=== PATIENT | male | born 1935 | race Caucasian/White ===

== ENCOUNTER 2017-04-08 11:07 | Inpatient (IN) | payer MEDICARE, OTHER ==
[~2017-04-08] VITALS: Ht 172.7 cm; Wt 67.7 kg
[~2017-04-08 11:07] MED LIST: AMOX1TAB61 PO; HYDR-971 PO
--- NOTE | 2017-04-08 11:17 | PHYS DOC ---
Adult General Chief Complaint Chief Complaint: HIP PAIN HPI HPI Patient is a 81 year old male who presents with pain after he fell at [employer]. He states he just slipped on the floor and fell. He complains of left posterior hip pain, he denies any neck pain and back pain or hitting his head. He denies any fevers chills or lightheadedness. Review of Systems Review of Systems Constitutional: Denies fever or chills [] Eyes: Denies change in visual acuity, redness, or eye pain [] HENT: Denies nasal congestion or sore throat [] Respiratory: Denies cough or shortness of breath [] Cardiovascular: No additional information not addressed in HPI [] GI: Denies abdominal pain, nausea, vomiting, bloody stools or diarrhea [] : Denies dysuria or hematuria [] Musculoskeletal: Denies back pain, positive for left hip pain or joint pain [] Integument: Denies rash or skin lesions [] Neurologic: Denies headache, focal weakness or sensory changes [] Endocrine: Denies polyuria or polydipsia [] Current Medications Current Medications Current Medications Medications (Trade) Dose Ordered Sig/David Start Time Stop Time Status Last Admin Dose Admin Morphine Sulfate 2 mg PRN Q15MIN PRN 04/08/17 12:15 04/09/17 12:14 04/08/17 13:05 2 MG Ondansetron HCl (Zofran) 4 mg 1X ONCE 04/08/17 12:15 04/08/17 12:18 DC Allergies Allergies Allergies Coded Allergies Type Severity Reaction Last Updated Verified No Known Drug Allergies 12/11/15 No Physical Exam Physical Exam Constitutional: Well developed, well nourished, no acute distress, non-toxic appearance. [] HENT: Normocephalic, atraumatic, bilateral external ears normal, oropharynx moist, no oral exudates, nose normal. [] Eyes: PERRLA, EOMI, conjunctiva normal, no discharge. [] Neck: Normal range of motion, no tenderness, supple, no stridor. [] Cardiovascular:Heart rate regular rhythm, no murmur [] Lungs & Thorax: Bilateral breath sounds clear to auscultation [] Abdomen: Bowel sounds normal, soft, no tenderness, no masses, no pulsatile masses. [] Skin: Warm, dry, no erythema, no rash. [] Back: No tenderness, no CVA tenderness. [] Extremities: Palpation of the left hip, no obvious deformity noted, dorsal pedis pulse 2+ in the left, no pain on the right hip or pelvis, no cyanosis, no clubbing, ROM intact, no edema. [] Neurologic: Alert and oriented X 3, normal motor function, normal sensory function, no focal deficits noted. [] Psychologic: Affect normal, judgement normal, mood normal. [] Current Patient Data Vital Signs Vital Signs Date Time Temp Pulse Resp B/P (MAP) Pulse Ox O2 Delivery O2 Flow Rate FiO2 04/08/17 11:27 97.8 56 18 170/79 (109) 98 Room Air 97.8 EKG EKG G shows sinus bradycardia with left axis deviation rate of 49 beats were without any ST elevations or T-wave inversions, QTC 409 ms, as interpreted by me. Radiology/Procedures Radiology/Procedures [facility] [address] [place], [place] [id number] IMAGING REPORT Signed PATIENT: MARCELL BOWMAN ACCOUNT: [id number] : 1935 LOCATION: ER AGE: 81 SEX: M EXAM STATUS: REG ER ORD. PHYSICIAN: CORBIN GLASER MD REASON: left hip pain after fall PROCEDURE: HIP LEFT 2V WITH PELVIS Indication: Fall with left hip pain. Time of exam 11:58 AM There is an acute fracture through the neck of the left proximal femur. No displacement or angulation is seen. Femoral acetabular alignment is maintained. Impression: Left femoral neck fracture. DICTATED and SIGNED BY: EDNA DYER MD DATE: 04/08/17 1214 CC: TOYIN THOMPSON MD; CORBIN GLASER MD ~ Impressions: Left hip fracture Course & Med Decision Making Course & Med Decision Making Pertinent Labs and Imaging studies reviewed. (See chart for details) Patient be admitted for left femoral neck fracture. He is in stable condition this time. I added on additional labs and chest x-ray and placed orthopedic consultation. Dragon Disclaimer Dragon Disclaimer This electronic medical record was generated, in whole or in part, using a voice recognition dictation system. Departure Departure Impression: Primary Impression: Hip fracture, left Disposition: 09 ADMITTED INPATIENT Admitting Physician: Toyin Thompson Condition: STABLE Referrals: TOYIN THOMPSON MD (PCP) Problem Qualifiers Primary Impression: Hip fracture, left Encounter type: initial encounter Fracture type: closed Qualified Codes: S72.002A - Fracture of unspecified part of neck of left femur, initial encounter for closed fracture CORBIN GLASER MD Apr 08, 2017 11:17
[2017-04-08] MEDS ORDERED: MORPHINE SULFATE 2 MG/ML DISP.SYRIN. IV/SQ PRN (12:15)
[2017-04-08] MEDS ORDERED: ONDANSETRON PF 4 MG/2 ML VIAL. IV ONE (12:15)
--- NOTE | 2017-04-08 12:17 | RAD ---
Indication: Fall with left hip pain. Time of exam 11:58 AM There is an acute fracture through the neck of the left proximal femur. No displacement or angulation is seen. Femoral acetabular alignment is maintained. Impression: Left femoral neck fracture.
--- NOTE | 2017-04-08 12:22 | RAD ---
Indication: Preop and left hip fracture. Time of exam 12 00 p.m. Correlation is made with prior study from 12/18/2015. FINDINGS: The heart size is normal. The lungs are clear. No pleural effusion or pneumothorax is identified. The pulmonary vascularity is normal. IMPRESSION: No acute abnormality detected.
[2017-04-08 13:02] LABS: BASO % 0 % (0-3); EOS % 0 % (0-3); HEMATOCRIT 45.4 % (39.0-53.0); HEMOGLOBIN 14.5 g/dL (13.0-17.5); LYMPH # 1.1 x10^3/uL (1.0-4.8); LYMPH % 8 % (24-48); MEAN CORPUSCULAR HEMOGLOBIN 29 pg (25-35); MEAN CORPUSCULAR HGB CONC 32 g/dL (31-37); MEAN CORPUSCULAR VOLUME 90 fL (79-100); MONO % 6 % (0-9); NEUT % 85 % (31-73); PLATELET COUNT 198 x10^3/uL (140-400); RED BLOOD COUNT 5.04 x10^6/uL (4.30-5.70); RED CELL DISTRIBUTION WIDTH 13.5 % (11.5-14.5); WHITE BLOOD COUNT 13.5 x10^3/uL (4.0-11.0)
[2017-04-08 13:14] LABS: CALCIUM 9.2 mg/dL (8.5-10.1); CREATININE 0.9 mg/dL (0.7-1.3); POTASSIUM 4.7 mmol/L (3.5-5.1)
[2017-04-08] MEDS ORDERED: ONDANSETRON PF 4 MG/2 ML VIAL. IV PRN (13:15)
[2017-04-08] MEDS ORDERED: MORPHINE SULFATE 2 MG/ML DISP.SYRIN. IV PRN (13:15)
--- NOTE | 2017-04-08 13:18 | ACF ---
Admission Forms Criteria MUSCULOSKELETAL DISEASE GRG Clinical Indications for Admission to Inpatient Care (Place 'X' for any and all applicable criteria): Hospital admission is needed for appropriate care of the patient because of 1 or more of the following: [X ]I. Fracture, dislocation, or other musculoskeletal injury requiring inpatient care(medical) as indicated by 1 or more of the following(4)(5)(6)(7) [ ]a) Vertebral fracture requiring observation for instability or neurologic compromise (8) [ ]b) Compartment syndrome (proven or cannot be ruled out during observation level of care) (9) [ ]c) Limb-threatening injury [ ]d) Major injury requiring inpatient stabilization such as traction initiation or external fixation before internal fixation or closure of complex or open fracture [X ]e) Major injury requiring inpatient treatment after emergency or observation level care (as appropriate) [ ]f) Severe pain requiring acute inpatient management [ ]g) Injury with suspicion of abuse or neglect (eg., child, dependent elderly) [ ]II. Newly diagnosed or suspected bone, joint, or orthopedic device infection (e.g., osteomyelitis, septic arthritis) needing 1 or more of the following(1)(2)(3) [ ]a) IV antibiotics that cannot be initiated in other than inpatient setting (e.g., patient too unstable or home infusion not available) [ ]b) Device removal or replacement [ ]c) Bone or soft tissue debridement [ ]d) Joint drainage (drain placement or repetitive aspirations) [ ]III. Severe rheumatologic disease (e.g., systemic lupus erythematosus, rheumatoid arthritis) with complications or comorbidities (Also use Optimal Recovery Care Criteria or General Recovery Criteria as appropriate on the basis of predominant condition), including 1 or more of the following( 10)(11)(12)(13) [ ]a) Severe infection (e.g., ACCOUNTING ADMINISTRATIVE ASSISTANT infection, sepsis) (14) [ ]b) Respiratory complications, including 1 or more of the following : [ ]i) Pleural effusion with respiratory compromise [ ]ii) Pulmonary hypertension with congestive failure [ ]iii) Respiratory failure [ ]iv) Pulmonary hemorrhage (15) [ ]c) Hematologic disease, including 1 or more of the following: [ ]i) Coagulopathy with bleeding [ ]ii) Thrombosis with hypercoagulable state [ ]iii) Thrombotic thrombocytopenic purpura [ ]d) Cerebritis with seizures, psychosis, or other severe abnormalities [ ]e) Vertebral destruction with monitoring needed for cervical myelopathy& possible respiratory compromise [ ]f) Exacerbation that requires inpatient treatment (e.g., intravenous immunosuppression) (16) [ ]g) Acute renal failure [ ]h) Cerebritis with seizures, psychosis, Altered mental status, or other neurologic abnormalities [ ]i) Pericardial effusion with tamponade [ ]j) Vertebral destruction, with monitoring needed for cervical myelopathy and possible respiratory compromise [ ]IV. Severe vasculitis with complications or comorbidities (Also use Optimal Recovery Care Criteria General Recovery Criteria as appropriate on the basis of predominant condition), including 1 or more of the following(11)(12)(17)(18)(19)(20) [ ]a) Exacerbation that requires inpatient treatment (e.g., intravenous immunosuppression) (19)(21) [ ]b) Pulmonary hemorrhage (15) [ ]c) ACCOUNTING ADMINISTRATIVE ASSISTANT vasculitis with seizures, psychosis, Altered mental status that is severe or persistent, or other severe abnormalities (22) [ ]d) Cerebral infarction [ ]e) Gastrointestinal ischemia [ ]f) Gangrene or threatened amputation [ ]g) Renal failure (16) [ ]h) Other significant complications of vasculitis ( eg., tissue or organ ischemia, organ dysfunction ) [ ]V. Severe myopathy as indicated by 1 or more of the following (28)(29) [ ]a) New onset of airway compromise or inability to swallow [ ]b) Respiratory deterioration with observation needed for impending respiratory failure [ ]c) Exacerbation that requires inpatient treatment (e.g., intravenous immunosuppression) [ ]. Severe crystal gout (arthropathy) indicated by 1 or more of the following (23)(24) [ ]a) Severe pain requiring acute inpatient management [ ]b) Exacerbation that requires inpatient treatment (e.g., intravenous treatment) [ ]VII.Rhabdomyolysis and 1 or more of the following (25)(26)(27) [ ]a) Acute renal failure [ ]b) Need for intravenous hydration after emergency or observation level care (as appropriate) [ ]c) Inability to maintain oral hydration [ ]d) Change in mental status [ ]e) Electrolyte abnormality that remains after emergency or observation level care (as appropriate) [ ]VIII Post amputation complication, as indicated by ANY ONE of the following [ ]a) Infection [ ]b) Dehiscence [ ]c) Myodesis failure [ ]IX. Severe pain requiring acute inpatient management due to musculoskeletal condition [ ]X. Musculoskeletal Disease and ALL of the following: [ ]a) Symptom or finding for which emergency and observation care have failed or are not considered appropriate (Use General Criteria: Observation Care as appropriate) [ ]b) Presence of ANY ONE of the following [ ]i) A General Admission Criteria [ ]ii) A Pediatric General Admission Criteria The original [facility] [employer] content created by [facility] has been revised. The portions of the content which have been revised are identified through the use of italic text or in bold, and [facility] has neither reviewed nor approved the modified material. All other unmodified content is copyright [facility]. Please see references footnoted in the original [facility] edition 2016 Admission Criteria Met?: Yes DUONG HONEYCUTT Apr 08, 2017 13:18
--- NOTE | 2017-04-08 13:41 | EKG ---
[facility] [address] [place] [address] Test Date: 2017-04-08 Test Time: 13:03:19 Pat Name: MARCELL BOWMAN Department: Room: 402 Gender: M Client Leader: : 1935 Requested By: CORBIN GLASER Order Number: [id number] Reading MD: Any Bryant Measurements Intervals [place] Rate: 49 P: -41 [place]: 188 QRS: -10 QRSD: 94 T: 21 QT: 450 QTc: 409 Interpretive Statements SINUS BRADYCARDIA LEFTWARD AXIS POSSIBLY ABNORMAL ECG Electronically Signed On 04-10-2017 14:07:51 CDT by Any Bryant
[2017-04-08 13:45] VITALS: BP 153/68
--- NOTE | 2017-04-08 14:12 | RAD ---
Indication: Left hip fracture. Time of exam 1404 hours. Frontal and lateral views of the mid and distal femur were obtained. The proximal femur was not included on this study. The mid and distal femur appear intact. There are patellofemoral degenerative changes. No fractures are seen. Impression: No acute abnormality is detected.
[2017-04-08 14:22] LABS: % EOS 1 % (0-5); PLT ESTIMATE ADEQUATE (ADEQUATE)
--- NOTE | 2017-04-08 14:25 | PDOC2 ---
CONSULT Date of Consult Date of Consult DATE: 04/08/17 TIME: 14:18 Reason for Consult Reason for Consult: left hip pain Identification/Chief Complaint Chief Complaint left hip pain Problems: Source Source: Chart review, Patient History of Present Illness Reason for Visit: The patient is a 81 year old male who is in relatively good health for his age who slipped and fell earlier today while getting coffee at [employer]. He had left hip pain, but was able to get himself up and drive himself to the ER. On presentation he has a displaced left transcervical femoral neck fracture. He reports no PMH besides an occasional aspirin he takes and an abdominal surgery in the last year. His pain is moderately well controlled. He did not hit his head. No loc. No numbness, tingling. Past Medical History Cardiovascular: Hyperlipidemia Musculoskeletal: Osteoarthritis Renal/: Benign prostatic enlarg. Past Surgical History Past Surgical History: Other (abdominal surgery by DR Biggs this past year) Family History Family History unknown, pt adopted Social History No ALCOHOL: none Drugs: None Lives: with Family Current Problem List Problem List left femoral neck fracture Current Medications Current Medications Current Medications Morphine Sulfate 2 mg PRN Q15MIN PRN IV/SQ PAIN GREATER THAN 3/10 Last administered on 04/08/17t 13:05; Start 04/08/17 at 12:15; Stop 04/08/17 at 13:07 ; Status DC Ondansetron HCl (Zofran) 4 mg 1X ONCE IV ; Start 04/08/17 at 12:15; Stop at 12:18; Status DC Ondansetron HCl (Zofran) 4 mg PRN Q8HRS PRN IV NAUSEA/VOMITING; Start 04/08/17 at 13:15; Stop 04/09/17 at 13:14 Morphine Sulfate 2 mg PRN Q2HR PRN IV PAIN Last administered on 04/08/17t 13:41 ; Start 04/08/17 at 13:15; Stop 04/09/17 at 13:14 Active Scripts Active Reported [place] 5-325 Tablet (Acetaminophen/Hydrocodone Bitart) 1 Each Tablet 1 Tab PO Q4HRS PRN Take 1 tablet every 4 hours as needed for pain. Augmentin 875-125 Tablet (Amoxicillin/Potassium Clav) 1 Each Tablet 1 Tab PO BID 5 Days Take 2 times a day 1 in AM with breakfast and 1 at bedtime for the next 5 days until gone. Next dose is due tonight December 18 at bedtime Allergies Allergies: Coded Allergies: No Known Drug Allergies (Unverified , 12/11/15) ROS General: No: Chills, Night Sweats, Fatigue, Malaise, Appetite, Other Musculoskeletal: Yes Gait Disturbance, Yes Joint Pain, Yes Joint Stiffness, Yes Muscle Pain Physical Exam General: Alert, Oriented X3, Cooperative, No acute distress MUSCULOSKELETAL: Other (pain with log roll and hip rom on the left. overall he is wearing dirty clothes and has poor dentition. very pleasant and cooperative. nvi distally. leg lengths nearly equal. 2+ DP distally. ) Vitals VITALS Vital Signs Date Time Temp Pulse Resp B/P (MAP) Pulse Ox O2 Delivery O2 Flow Rate FiO2 04/08/17 13:41 16 Room Air 04/08/17 13:06 58 173/77 (109) 99 04/08/17 11:27 97.8 97.8 Labs Labs Laboratory Tests Test 04/08/17 12:50 White Blood Count 13.5 x10^3/uL (4.0-11.0) Red Blood Count 5.04 x10^6/uL (4.30-5.70) Hemoglobin 14.5 g/dL (13.0-17.5) Hematocrit 45.4 % (39.0-53.0) Mean Corpuscular Volume 90 fL (79-100) Mean Corpuscular Hemoglobin 29 pg (25-35) Mean Corpuscular Hemoglobin Concent 32 g/dL (31-37) Red Cell Distribution Width 13.5 % (11.5-14.5) Platelet Count 198 x10^3/uL (140-400) Neutrophils (%) (Auto) 85 % (31-73) Lymphocytes (%) (Auto) 8 % (24-48) Monocytes (%) (Auto) 6 % (0-9) Eosinophils (%) (Auto) 0 % (0-3) Basophils (%) (Auto) 0 % (0-3) Neutrophils # (Auto) 11.5 x10^3uL (1.8-7.7) Lymphocytes # (Auto) 1.1 x10^3/uL (1.0-4.8) Monocytes # (Auto) 0.9 x10^3/uL (0.0-1.1) Eosinophils # (Auto) 0.0 x10^3/uL (0.0-0.7) Basophils # (Auto) 0.0 x10^3/uL (0.0-0.2) Sodium Level 137 mmol/L (136-145) Potassium Level 4.7 mmol/L (3.5-5.1) Chloride Level 100 mmol/L (98-107) Carbon Dioxide Level 26 mmol/L (21-32) Anion Gap 11 (6-14) Blood Urea Nitrogen 17 mg/dL (8-26) Creatinine 0.9 mg/dL (0.7-1.3) Estimated GFR (Cockcroft-Gault) 81.0 Glucose Level 102 mg/dL (70-99) Calcium Level 9.2 mg/dL (8.5-10.1) Laboratory Tests Test 04/08/17 12:50 White Blood Count 13.5 x10^3/uL (4.0-11.0) Red Blood Count 5.04 x10^6/uL (4.30-5.70) Hemoglobin 14.5 g/dL (13.0-17.5) Hematocrit 45.4 % (39.0-53.0) Mean Corpuscular Volume 90 fL (79-100) Mean Corpuscular Hemoglobin 29 pg (25-35) Mean Corpuscular Hemoglobin Concent 32 g/dL (31-37) Red Cell Distribution Width 13.5 % (11.5-14.5) Platelet Count 198 x10^3/uL (140-400) Neutrophils (%) (Auto) 85 % (31-73) Lymphocytes (%) (Auto) 8 % (24-48) Monocytes (%) (Auto) 6 % (0-9) Eosinophils (%) (Auto) 0 % (0-3) Basophils (%) (Auto) 0 % (0-3) Neutrophils # (Auto) 11.5 x10^3uL (1.8-7.7) Lymphocytes # (Auto) 1.1 x10^3/uL (1.0-4.8) Monocytes # (Auto) 0.9 x10^3/uL (0.0-1.1) Eosinophils # (Auto) 0.0 x10^3/uL (0.0-0.7) Basophils # (Auto) 0.0 x10^3/uL (0.0-0.2) Sodium Level 137 mmol/L (136-145) Potassium Level 4.7 mmol/L (3.5-5.1) Chloride Level 100 mmol/L (98-107) Carbon Dioxide Level 26 mmol/L (21-32) Anion Gap 11 (6-14) Blood Urea Nitrogen 17 mg/dL (8-26) Creatinine 0.9 mg/dL (0.7-1.3) Estimated GFR (Cockcroft-Gault) 81.0 Glucose Level 102 mg/dL (70-99) Calcium Level 9.2 mg/dL (8.5-10.1) Images Images Xrays of the pelvis and left hip/ femur reveal a displaced transcervical femoral neck fracture. martín rawls femur Assessment/Plan Assessment/Plan The patient is an 81 year old male who slipped and fell today sustaining a left displaced femoral neck fracture The plan is for bipolar hip arthroplasty. We will await clearance from medicine, would like to operate tomorrow afternoon pt is npo after 8 am tomorrow morning pain control dvt ppx ice on the hip bedrest for now, will be wbat after surgery. After discussing the risks and benefits of surgery, the patient elected to proceed with bi-polar hip arthroplasty. JOSE GARCIA MD Apr 08, 2017 14:25
[2017-04-08 15:00] VITALS: BP 125/66
[2017-04-08 15:20] LABS: INR 1.1 (0.8-1.1); PROTHROMBIN TIME PATIENT 13.1 SEC (11.7-14.0)
[2017-04-08] MEDS: HYDROmorphone 2 MG/ML VIAL IVP PRN ×2 (16:22→22:31)
[2017-04-08] MEDS: ACETAMINOPHEN 500 MG TABLET PO SCH ×2 (18:03→23:31)
[2017-04-08 19:53] VITALS: BP 123/61
[2017-04-08 23:06] VITALS: BP 123/59
[2017-04-09] VITALS (11 sets, daily range): BP systolic 102–134; BP diastolic 56–71
[2017-04-09] MEDS: ACETAMINOPHEN 500 MG TABLET PO SCH ×4 (06:09→23:39)
[2017-04-09 06:42] LABS: BASO # 0.1 x10^3/uL (0.0-0.2); BASO % 1 % (0-3); EOS % 4 % (0-3); HEMATOCRIT 36.4 % (39.0-53.0); HEMOGLOBIN 11.8 g/dL (13.0-17.5); LYMPH # 1.2 x10^3/uL (1.0-4.8); LYMPH % 16 % (24-48); MEAN CORPUSCULAR HEMOGLOBIN 29 pg (25-35); MEAN CORPUSCULAR HGB CONC 33 g/dL (31-37); MEAN CORPUSCULAR VOLUME 90 fL (79-100); MONO % 9 % (0-9); NEUT % 71 % (31-73); PLATELET COUNT 181 x10^3/uL (140-400); RED BLOOD COUNT 4.06 x10^6/uL (4.30-5.70); WHITE BLOOD COUNT 7.5 x10^3/uL (4.0-11.0)
[2017-04-09] MEDS ORDERED: fentaNYL PF VIAL 100 MCG/2 ML VIAL IV PRN ×2 (07:00)
[2017-04-09] MEDS ORDERED: ONDANSETRON PF 4 MG/2 ML VIAL. IV PRN (07:00)
[2017-04-09] MEDS ORDERED: IV RINGERS,LACTATED 1000ML 1,000 ML IV SCH (07:00)
[2017-04-09] MEDS ORDERED: PROCHLORPERAZINE 10 MG/2 ML VIAL. IV PRN (07:00)
[2017-04-09] MEDS ORDERED: HYDROmorphone 2 MG/ML VIAL IV PRN (07:00)
[2017-04-09] MEDS ORDERED: MORPHINE SULFATE 2 MG/ML DISP.SYRIN. IV PRN (07:00)
[2017-04-09] MEDS ORDERED: LIDOCAINE 1% 1 ML SYRINGE. ID PRN (07:00)
[2017-04-09 07:16] LABS: CALCIUM 8.4 mg/dL (8.5-10.1); GFR 71.7; POTASSIUM 4.1 mmol/L (3.5-5.1)
--- NOTE | 2017-04-09 08:34 | PDOC ---
GENERAL General: vss and afebrile. awake and alert. left femoral neck fracture from fall yesterday. chest clear, heart regular, and abdomen benign. leg length about equal. nv legs intact. labs all decent. medically cleared for surgery today. can 't dictate H&P due to system being down. Problems: VITAL SIGNS Vital Signs: Vital Signs Date Time Temp Pulse Resp B/P (MAP) Pulse Ox O2 Delivery O2 Flow Rate FiO2 04/09/17 07:00 97.9 53 20 120/63 (82) 96 Room Air 97.9 I & O I & O Intake and Output 04/09/17 07:00 Intake Total 350 ml Output Total 325 ml Balance 25 ml Intake Oral 350 ml Output Urine Total 325 ml # Voids 1 ALLERGIES Allergies: Allergies Coded Allergies Type Severity Reaction Last Updated Verified No Known Drug Allergies 12/11/15 No MEDS Medications: Current Medications Medications (Trade) Dose Ordered Sig/David Start Time Stop Time Status Last Admin Dose Admin Acetaminophen (Tylenol) 1,000 mg Q6HRS 04/08/17 18:00 04/09/17 06:09 1,000 MG Fentanyl Citrate (Fentanyl 2ml Vial) 50 mcg PRN Q5MIN PRN 04/09/17 07:00 04/09/17 23:00 Hydromorphone HCl (Dilaudid) 0.5 mg PRN Q10MIN PRN 04/09/17 07:00 04/09/17 23:00 Lidocaine HCl 2 ml PRN 1X PRN 04/09/17 07:00 04/09/17 23:00 Morphine Sulfate 1 mg PRN Q10MIN PRN 04/09/17 07:00 04/09/17 23:00 Ondansetron HCl (Zofran) 4 mg PRN Q6HRS PRN 04/09/17 07:00 04/09/17 23:00 Prochlorperazine Edisylate (Compazine) 5 mg PACU PRN PRN 04/09/17 07:00 04/09/17 23:00 Ringer's Solution 1,000 ml @ 30 mls/hr Q24H 04/09/17 07:00 04/09/17 18:59 LAB Lab: Laboratory Tests Test 04/08/17 12:50 04/08/17 15:00 04/09/17 04:38 White Blood Count 13.5 x10^3/uL (4.0-11.0) 7.5 x10^3/uL (4.0-11.0) Red Blood Count 5.04 x10^6/uL (4.30-5.70) 4.06 x10^6/uL (4.30-5.70) Hemoglobin 14.5 g/dL (13.0-17.5) 11.8 g/dL (13.0-17.5) Hematocrit 45.4 % (39.0-53.0) 36.4 % (39.0-53.0) Mean Corpuscular Volume 90 fL (79-100) 90 fL (79-100) Mean Corpuscular Hemoglobin 29 pg (25-35) 29 pg (25-35) Mean Corpuscular Hemoglobin Concent 32 g/dL (31-37) 33 g/dL (31-37) Red Cell Distribution Width 13.5 % (11.5-14.5) 13.0 % (11.5-14.5) Platelet Count 198 x10^3/uL (140-400) 181 x10^3/uL (140-400) Neutrophils (%) (Auto) 85 % (31-73) 71 % (31-73) Lymphocytes (%) (Auto) 8 % (24-48) 16 % (24-48) Monocytes (%) (Auto) 6 % (0-9) 9 % (0-9) Eosinophils (%) (Auto) 0 % (0-3) 4 % (0-3) Basophils (%) (Auto) 0 % (0-3) 1 % (0-3) Neutrophils # (Auto) 11.5 x10^3uL (1.8-7.7) 5.3 x10^3uL (1.8-7.7) Lymphocytes # (Auto) 1.1 x10^3/uL (1.0-4.8) 1.2 x10^3/uL (1.0-4.8) Monocytes # (Auto) 0.9 x10^3/uL (0.0-1.1) 0.7 x10^3/uL (0.0-1.1) Eosinophils # (Auto) 0.0 x10^3/uL (0.0-0.7) 0.3 x10^3/uL (0.0-0.7) Basophils # (Auto) 0.0 x10^3/uL (0.0-0.2) 0.1 x10^3/uL (0.0-0.2) Segmented Neutrophils % 83 % (35-66) Band Neutrophils % 3 % (0-9) Lymphocytes % 7 % (24-48) Monocytes % 6 % (0-10) Eosinophils % 1 % (0-5) Platelet Estimate Adequate (ADEQUATE) Sodium Level 137 mmol/L (136-145) 135 mmol/L (136-145) Potassium Level 4.7 mmol/L (3.5-5.1) 4.1 mmol/L (3.5-5.1) Chloride Level 100 mmol/L (98-107) 101 mmol/L (98-107) Carbon Dioxide Level 26 mmol/L (21-32) 28 mmol/L (21-32) Anion Gap 11 (6-14) 6 (6-14) Blood Urea Nitrogen 17 mg/dL (8-26) 21 mg/dL (8-26) Creatinine 0.9 mg/dL (0.7-1.3) 1.0 mg/dL (0.7-1.3) Estimated GFR (Cockcroft-Gault) 81.0 71.7 Glucose Level 102 mg/dL (70-99) 106 mg/dL (70-99) Calcium Level 9.2 mg/dL (8.5-10.1) 8.4 mg/dL (8.5-10.1) Prothrombin Time 13.1 SEC (11.7-14.0) Prothromb Time International Ratio 1.1 (0.8-1.1) Activated Partial Thromboplast Time 22 SEC (24-38) 25-Hydroxy Vitamin D Total 27.8 ng/mL (30.0-100.0) TOYIN LANDA MD Apr 09, 2017 08:34
[2017-04-09] MEDS: HYDROmorphone 2 MG/ML VIAL IVP PRN (14:01)
[2017-04-09] MEDS ORDERED: SEVOFLURANE > 120 MINUTES. IH ONE (14:14)
[2017-04-09] MEDS ORDERED: fentaNYL PF VIAL 100 MCG/2 ML VIAL ONE ×2 (14:14→15:59)
[2017-04-09] MEDS ORDERED: GLYCOPYRROLATE 1 MG/5 ML VIAL. ONE (14:14)
[2017-04-09] MEDS ORDERED: ROCURONIUM 50 MG/5 ML VIAL. ONE (14:14)
[2017-04-09] MEDS ORDERED: DEXAMETHASONE SOD PHOS 20 MG/5 ML VIAL. ONE (14:15)
[2017-04-09] MEDS ORDERED: NEOSTIGMINE METHYLSULFATE 5 MG/5 ML SYRINGE. ONE (14:15)
[2017-04-09] MEDS ORDERED: ONDANSETRON PF 4 MG/2 ML VIAL. ONE (14:15)
[2017-04-09] MEDS ORDERED: LIDOCAINE 2% PF Vial for OR 5 ML VIAL. ONE (14:15)
[2017-04-09] MEDS ORDERED: PROPOFOL 20 ML IV ONE (14:16)
--- NOTE | 2017-04-09 15:05 | PDOC ---
PROGRESS NOTES Subjective Subjective Problems overnight: No acute issues. Pain well controlled. NPO since midnight for surgery. Objective Vital Signs Vital Signs Date Time Temp Pulse Resp B/P (MAP) Pulse Ox O2 Delivery O2 Flow Rate FiO2 04/09/17 14:18 97.2 56 22 124/65 95 Room Air 97.2 Physical Exam LLE: pain with leg movement, log roll. no ecchymosis. nvi distally. Labs Laboratory Tests Test 04/08/17 12:50 04/08/17 15:00 04/09/17 04:38 White Blood Count 13.5 x10^3/uL (4.0-11.0) 7.5 x10^3/uL (4.0-11.0) Red Blood Count 5.04 x10^6/uL (4.30-5.70) 4.06 x10^6/uL (4.30-5.70) Hemoglobin 14.5 g/dL (13.0-17.5) 11.8 g/dL (13.0-17.5) Hematocrit 45.4 % (39.0-53.0) 36.4 % (39.0-53.0) Mean Corpuscular Volume 90 fL (79-100) 90 fL (79-100) Mean Corpuscular Hemoglobin 29 pg (25-35) 29 pg (25-35) Mean Corpuscular Hemoglobin Concent 32 g/dL (31-37) 33 g/dL (31-37) Red Cell Distribution Width 13.5 % (11.5-14.5) 13.0 % (11.5-14.5) Platelet Count 198 x10^3/uL (140-400) 181 x10^3/uL (140-400) Neutrophils (%) (Auto) 85 % (31-73) 71 % (31-73) Lymphocytes (%) (Auto) 8 % (24-48) 16 % (24-48) Monocytes (%) (Auto) 6 % (0-9) 9 % (0-9) Eosinophils (%) (Auto) 0 % (0-3) 4 % (0-3) Basophils (%) (Auto) 0 % (0-3) 1 % (0-3) Neutrophils # (Auto) 11.5 x10^3uL (1.8-7.7) 5.3 x10^3uL (1.8-7.7) Lymphocytes # (Auto) 1.1 x10^3/uL (1.0-4.8) 1.2 x10^3/uL (1.0-4.8) Monocytes # (Auto) 0.9 x10^3/uL (0.0-1.1) 0.7 x10^3/uL (0.0-1.1) Eosinophils # (Auto) 0.0 x10^3/uL (0.0-0.7) 0.3 x10^3/uL (0.0-0.7) Basophils # (Auto) 0.0 x10^3/uL (0.0-0.2) 0.1 x10^3/uL (0.0-0.2) Segmented Neutrophils % 83 % (35-66) Band Neutrophils % 3 % (0-9) Lymphocytes % 7 % (24-48) Monocytes % 6 % (0-10) Eosinophils % 1 % (0-5) Platelet Estimate Adequate (ADEQUATE) Sodium Level 137 mmol/L (136-145) 135 mmol/L (136-145) Potassium Level 4.7 mmol/L (3.5-5.1) 4.1 mmol/L (3.5-5.1) Chloride Level 100 mmol/L (98-107) 101 mmol/L (98-107) Carbon Dioxide Level 26 mmol/L (21-32) 28 mmol/L (21-32) Anion Gap 11 (6-14) 6 (6-14) Blood Urea Nitrogen 17 mg/dL (8-26) 21 mg/dL (8-26) Creatinine 0.9 mg/dL (0.7-1.3) 1.0 mg/dL (0.7-1.3) Estimated GFR (Cockcroft-Gault) 81.0 71.7 Glucose Level 102 mg/dL (70-99) 106 mg/dL (70-99) Calcium Level 9.2 mg/dL (8.5-10.1) 8.4 mg/dL (8.5-10.1) Prothrombin Time 13.1 SEC (11.7-14.0) Prothromb Time International Ratio 1.1 (0.8-1.1) Activated Partial Thromboplast Time 22 SEC (24-38) 25-Hydroxy Vitamin D Total 27.8 ng/mL (30.0-100.0) Laboratory Tests Test 04/09/17 04:38 White Blood Count 7.5 x10^3/uL (4.0-11.0) Red Blood Count 4.06 x10^6/uL (4.30-5.70) Hemoglobin 11.8 g/dL (13.0-17.5) Hematocrit 36.4 % (39.0-53.0) Mean Corpuscular Volume 90 fL (79-100) Mean Corpuscular Hemoglobin 29 pg (25-35) Mean Corpuscular Hemoglobin Concent 33 g/dL (31-37) Red Cell Distribution Width 13.0 % (11.5-14.5) Platelet Count 181 x10^3/uL (140-400) Neutrophils (%) (Auto) 71 % (31-73) Lymphocytes (%) (Auto) 16 % (24-48) Monocytes (%) (Auto) 9 % (0-9) Eosinophils (%) (Auto) 4 % (0-3) Basophils (%) (Auto) 1 % (0-3) Neutrophils # (Auto) 5.3 x10^3uL (1.8-7.7) Lymphocytes # (Auto) 1.2 x10^3/uL (1.0-4.8) Monocytes # (Auto) 0.7 x10^3/uL (0.0-1.1) Eosinophils # (Auto) 0.3 x10^3/uL (0.0-0.7) Basophils # (Auto) 0.1 x10^3/uL (0.0-0.2) Sodium Level 135 mmol/L (136-145) Potassium Level 4.1 mmol/L (3.5-5.1) Chloride Level 101 mmol/L (98-107) Carbon Dioxide Level 28 mmol/L (21-32) Anion Gap 6 (6-14) Blood Urea Nitrogen 21 mg/dL (8-26) Creatinine 1.0 mg/dL (0.7-1.3) Estimated GFR (Cockcroft-Gault) 71.7 Glucose Level 106 mg/dL (70-99) Calcium Level 8.4 mg/dL (8.5-10.1) Assessment Assessment Left displaced femoral neck fracture Problems: (1) Hip fracture, left Plan Plan of Care The patient is ready for the OR today He is asking for someone to cut his toenails, I would recc a podiatry consult while he is admitted here. He will be wbat after surgery. PT/OT: anticipate 1-2 days in the hospital. Placement dependent on progress dvt ppx with sqh pain control bowel reg Problem Qualifiers (1) Hip fracture, left: Encounter type: initial encounter Fracture type: closed Qualified Codes: S72.002A - Fracture of unspecified part of neck of left femur, initial encounter for closed fracture JOSE GARCIA MD Apr 09, 2017 15:05
[2017-04-09] MEDS ORDERED: TRANEXAMIC ACID 1,000 MG in IV NORMAL SALINE 50ML 50 ML INJ ONE ×2 (15:46→15:47)
[2017-04-09] MEDS ORDERED: ePHEDrine PF IN SALINE 50 MG/5 ML DISP.SYRIN IV ONE (16:43)
--- NOTE | 2017-04-09 17:02 | RAD ---
Indication: Left hip surgery. Time of exam 1645 hours. An intraoperative view of the left hip was obtained. A left femoral broach is in place. Alignment is normal. No fractures are seen. Impression: Intraoperative views of the left hip.
--- NOTE | 2017-04-09 17:03 | RAD ---
Indication: Left hip surgery. Time of exam 1633 hours. Single view of the left hip was obtained in the OR. The left femoral broach is in place. Patient is undergoing arthroplasty. Alignment is normal. Impression: Intraoperative views of the left hip.
[2017-04-09] MEDS ORDERED: BUPIVACAINE-EPI 0.25%-1:200000 MPF 30 ML VIAL. ONE (17:27)
--- NOTE | 2017-04-09 17:52 | PDOC4 ---
Operative Note Operative Note DATE OF OPERATION: 04/09/2017 PREOPERATIVE DIAGNOSIS: LEFT DISPLACED FEMORAL NECK FRACTURE S72.002A POSTOPERATIVE DIAGNOSIS: LEFT DISPLACED FEMORAL NECK FRACTURE S72.002A OPERATION PERFORMED: LEFT HIP BIPOLAR ARTHROPLASTY; (OPEN TREATMENT OF FEMORAL FRACTURE, PROXIMAL END, NECK, INTERNAL FIXATION OR PROSTHETIC REPLACEMENT), CPT 30440 SURGEON: Camryn Garcia MD URBAN REDEVELOPMENT SPECIALIST: Joseph Lozada PA-C; NELSON PEREZ ANESTHESIA: General ESTIMATED BLOOD LOSS: 300 CC IMPLANTS: JODY ACCOLADE II PRESS FIT SIZE 3 STEM, 50 MM BIPOLAR HEAD SURGICAL INDICATION: The patient is a 81 year old male who fell, fracturing the left hip. X-rays revealed a displaced femoral neck fracture. The patient and I and the patients family discussed the risks and benefits and alternatives of treatment. The alternative for treatment is bedrest until the fracture feels well, which is generally not well tolerated due to the risks of bedsores, blood clots, pneumonia, and deconditioning. I recommended a bipolar arthroplasty, and I talked to them about the potential risks of this including risks of bleeding, infection, blood clots, dislocation, leg length discrepancy, periprosthetic fracture, hardware failure, or other potential surgical or anesthetic complications. All of their questions were answered about surgery and they desired to proceed. A written consent was obtained. DESCRIPTION OF PROCEDURE: The patient was identified, marked, and the procedure was reconfirmed by myself prior to taking them to the operating room. IV antibiotics were given preoperatively. The patient was positioned appropriately lateral on a beanbag with all bony prominences well padded and underwent adequate general anesthesia after a timeout was performed. The operative leg was prepped and draped in a standard surgical fashion using an ioban hip drape and an impervious stockinette such that the skin was entirely covered. All of the operating team wore the personal ventilated exhaust scrub suits. A final timeout was performed prior to making incision. A posterior approach to the hip was used. Sharp dissection was used and bovie electrocautery was used for hemostasis. Gelpi retractors were placed. Bovie electrocautery was used and the fascia was exposed. The fascia was sharply divided and then a Charnley retractor was placed splitting the gluteus stone muscle inline with the fibers. My temporary administrative assistant then internally rotated the hip to put the short external rotators on stretch. I placed a tag suture into the piriformis tendon, and then I divided the short external rotators off the posterior aspect of the hip. The charnley retractor was placed deeper now to protect the sciatic nerve with the short external rotators. The capsule was divided in an inverted T fashion and tagged on the corners. The fracture was identified. The neck was recut with a saw approximately 1 fingerbreadth superior to the lesser trochanter and the fragment was removed. The head was removed with a skid and corkscrew and measured using the calipers to be 50 mm in diameter. The acetabulum was cleared of any soft tissue and bony fragments. The lateral aspect of the cut femoral neck was exposed in the piriformis fossae. A box osteotome was used to enlarge the entry laterally and a manual T handled canal finder was inserted down the shaft of the femur. The proximal femur was broached in the appropriate anteversion starting with a size 0 and progressing to a size 3 when it was found that the broach had good stability. A trial size 3 broach was then placed and found to have good stability medially to lateral. Different head and neck lengths were trialed until satisfactory length and stability were achieved in full extension, hip flexion of 90 degrees, and internal rotation. My temporary administrative assistant was required to dislocate the hip with traction and rotation on the leg, while I directed the hip implant in and out of the socket. An intraoperative xray was taken with the trials in place and was found to have appropriate canal fill and offset. The trial components were then removed, the canal was irrigated and the final components were placed without any difficulty. The hip was reduced a final time with my temporary administrative assistant applying axial traction and rotation, while I guided the head into the acetabulum. A final check was made of limb length and stability in multiple positions. Copious irrigation was used. The capsule was reapproximated with 0 Vicryl. The piriformis tendon was repaired back to the fossae through a small drill hole in the greater trochanter with 0 vicryl. The fascia was closed with 0 Vicryl figure of 8 sutures. 3-0 monocryl was used to close the superficial soft tissues, and the skin was closed with a prineo dressing. 30 cc of 0.5% Marcaine with epi was infiltrated into the incision and surrounding tissues for pain control. A bulky sterile dressing was applied. An abduction pillow was used. The patient tolerated the procedure well. Needle and sponge counts were correct. DISPOSITION: The patient was transferred to the bed and taken to the recovery room awake, alert, and in stable condition. COMPLICATIONS: None POST-OPERATIVE PLAN: THE PATIENT CAN BE WEIGHT BEARING TOLERATED , HIP PRECAUTIONS. CAMRYN GARCIA MD Apr 09, 2017 17:52
--- NOTE | 2017-04-09 17:52 | PDOC ---
BRIEF OPERATIVE NOTE Date: Apr 09, 2017 Pre-Op Diagnosis Left displaced femoral neck fracture Post-Op Diagnosis same Procedure Performed Left bipolar hemiarthroplasty Surgeon Camryn Davalos MD Sole Leather Cutting Machine Operator Tori Blood Loss 300 Specimens Obtained none Findings none Complications none MELY MELÉNDEZ PAC Apr 09, 2017 17:52
[2017-04-09 18:46] LABS: BASO % 1 % (0-3); EOS % 1 % (0-3); HEMATOCRIT 34.9 % (39.0-53.0); HEMOGLOBIN 11.6 g/dL (13.0-17.5); LYMPH # 0.5 x10^3/uL (1.0-4.8); LYMPH % 5 % (24-48); MEAN CORPUSCULAR HEMOGLOBIN 30 pg (25-35); MEAN CORPUSCULAR HGB CONC 33 g/dL (31-37); MEAN CORPUSCULAR VOLUME 90 fL (79-100); MONO % 2 % (0-9); NEUT % 92 % (31-73); PLATELET COUNT 164 x10^3/uL (140-400); RED CELL DISTRIBUTION WIDTH 13.1 % (11.5-14.5); WHITE BLOOD COUNT 10.5 x10^3/uL (4.0-11.0)
[2017-04-10 03:50] VITALS: BP 108/58
[2017-04-10] MEDS: ACETAMINOPHEN 500 MG TABLET PO SCH ×3 (06:03→19:25)
[2017-04-10 07:00] VITALS: BP 123/72
--- NOTE | 2017-04-10 07:22 | RAD ---
Portable pelvis, 04/09/2017: History: Postop evaluation Comparison is made to a study from 04/08/2017. The fractured left femoral head and neck have been resected with a bipolar hip prosthesis now in place. It appears to be in satisfactory position on this AP view. There are moderate degenerative changes at the right hip joint. No acute pelvic abnormality is detected. Scattered vascular calcifications are noted. There is no evidence of a retained surgical instrument, needle or radiopaque sponge. IMPRESSION: A bipolar left hip prosthesis has been placed in satisfactory position.
--- NOTE | 2017-04-10 09:27 | PDOC ---
PROGRESS NOTES Subjective Subjective Problems overnight: No acute issues overnight. AVSS. No labs checked this am, postop hb was stable. Pain well controlled. Has not worked with physical therapy yet. Objective Vital Signs Vital Signs Date Time Temp Pulse Resp B/P (MAP) Pulse Ox O2 Delivery O2 Flow Rate FiO2 04/10/17 07:00 97.7 74 20 123/72 (89) 96 Room Air 97.7 04/09/17 17:42 10 Physical Exam awake, alert, no acute distress. LEFT LOWER EXTREMITY: dressing clean, dry, and intact.. neurovascularly intact distally. long disorted toenails bilaterally. poor dentition. Labs Laboratory Tests Test 04/08/17 12:50 04/08/17 15:00 04/09/17 04:38 04/09/17 18:36 White Blood Count 13.5 x10^3/uL (4.0-11.0) 7.5 x10^3/uL (4.0-11.0) 10.5 x10^3/uL (4.0-11.0) Red Blood Count 5.04 x10^6/uL (4.30-5.70) 4.06 x10^6/uL (4.30-5.70) 3.90 x10^6/uL (4.30-5.70) Hemoglobin 14.5 g/dL (13.0-17.5) 11.8 g/dL (13.0-17.5) 11.6 g/dL (13.0-17.5) Hematocrit 45.4 % (39.0-53.0) 36.4 % (39.0-53.0) 34.9 % (39.0-53.0) Mean Corpuscular Volume 90 fL (79-100) 90 fL (79-100) 90 fL (79-100) Mean Corpuscular Hemoglobin 29 pg (25-35) 29 pg (25-35) 30 pg (25-35) Mean Corpuscular Hemoglobin Concent 32 g/dL (31-37) 33 g/dL (31-37) 33 g/dL (31-37) Red Cell Distribution Width 13.5 % (11.5-14.5) 13.0 % (11.5-14.5) 13.1 % (11.5-14.5) Platelet Count 198 x10^3/uL (140-400) 181 x10^3/uL (140-400) 164 x10^3/uL (140-400) Neutrophils (%) (Auto) 85 % (31-73) 71 % (31-73) 92 % (31-73) Lymphocytes (%) (Auto) 8 % (24-48) 16 % (24-48) 5 % (24-48) Monocytes (%) (Auto) 6 % (0-9) 9 % (0-9) 2 % (0-9) Eosinophils (%) (Auto) 0 % (0-3) 4 % (0-3) 1 % (0-3) Basophils (%) (Auto) 0 % (0-3) 1 % (0-3) 1 % (0-3) Neutrophils # (Auto) 11.5 x10^3uL (1.8-7.7) 5.3 x10^3uL (1.8-7.7) 9.6 x10^3uL (1.8-7.7) Lymphocytes # (Auto) 1.1 x10^3/uL (1.0-4.8) 1.2 x10^3/uL (1.0-4.8) 0.5 x10^3/uL (1.0-4.8) Monocytes # (Auto) 0.9 x10^3/uL (0.0-1.1) 0.7 x10^3/uL (0.0-1.1) 0.2 x10^3/uL (0.0-1.1) Eosinophils # (Auto) 0.0 x10^3/uL (0.0-0.7) 0.3 x10^3/uL (0.0-0.7) 0.1 x10^3/uL (0.0-0.7) Basophils # (Auto) 0.0 x10^3/uL (0.0-0.2) 0.1 x10^3/uL (0.0-0.2) 0.0 x10^3/uL (0.0-0.2) Segmented Neutrophils % 83 % (35-66) Band Neutrophils % 3 % (0-9) Lymphocytes % 7 % (24-48) Monocytes % 6 % (0-10) Eosinophils % 1 % (0-5) Platelet Estimate Adequate (ADEQUATE) Sodium Level 137 mmol/L (136-145) 135 mmol/L (136-145) Potassium Level 4.7 mmol/L (3.5-5.1) 4.1 mmol/L (3.5-5.1) Chloride Level 100 mmol/L (98-107) 101 mmol/L (98-107) Carbon Dioxide Level 26 mmol/L (21-32) 28 mmol/L (21-32) Anion Gap 11 (6-14) 6 (6-14) Blood Urea Nitrogen 17 mg/dL (8-26) 21 mg/dL (8-26) Creatinine 0.9 mg/dL (0.7-1.3) 1.0 mg/dL (0.7-1.3) Estimated GFR (Cockcroft-Gault) 81.0 71.7 Glucose Level 102 mg/dL (70-99) 106 mg/dL (70-99) Calcium Level 9.2 mg/dL (8.5-10.1) 8.4 mg/dL (8.5-10.1) Prothrombin Time 13.1 SEC (11.7-14.0) Prothromb Time International Ratio 1.1 (0.8-1.1) Activated Partial Thromboplast Time 22 SEC (24-38) 25-Hydroxy Vitamin D Total 27.8 ng/mL (30.0-100.0) Laboratory Tests Test 04/09/17 18:36 White Blood Count 10.5 x10^3/uL (4.0-11.0) Red Blood Count 3.90 x10^6/uL (4.30-5.70) Hemoglobin 11.6 g/dL (13.0-17.5) Hematocrit 34.9 % (39.0-53.0) Mean Corpuscular Volume 90 fL (79-100) Mean Corpuscular Hemoglobin 30 pg (25-35) Mean Corpuscular Hemoglobin Concent 33 g/dL (31-37) Red Cell Distribution Width 13.1 % (11.5-14.5) Platelet Count 164 x10^3/uL (140-400) Neutrophils (%) (Auto) 92 % (31-73) Lymphocytes (%) (Auto) 5 % (24-48) Monocytes (%) (Auto) 2 % (0-9) Eosinophils (%) (Auto) 1 % (0-3) Basophils (%) (Auto) 1 % (0-3) Neutrophils # (Auto) 9.6 x10^3uL (1.8-7.7) Lymphocytes # (Auto) 0.5 x10^3/uL (1.0-4.8) Monocytes # (Auto) 0.2 x10^3/uL (0.0-1.1) Eosinophils # (Auto) 0.1 x10^3/uL (0.0-0.7) Basophils # (Auto) 0.0 x10^3/uL (0.0-0.2) Imaging Intraop and postop xrays reveal a well placed left hip hemiarthroplasty with no adjacent fractures or dislocations. Assessment Assessment POD# 1 S/P left hip hemiarthroplasty Problems: (1) Hip fracture, left Plan Plan of Care The patient is POD 1 status post left hip hemiarthroplasty. He is currently doing very well. I will order labs this am to follow-up on his hb postoperatively. Pain control: added oral meds, oxycodone and ultram in addition to tylenol and IV meds. bowel regimen : added senna s. please hold for loose stools. His vitamin D is low, I have added supplementation which he would need to be discharged on dvt prophylaxis: subcutaneous heparin. physical therapy/ ot: weight-bearing as tolerated left lower extremity with hip precautions. Problem Qualifiers (1) Hip fracture, left: Encounter type: initial encounter Fracture type: closed Qualified Codes: S72.002A - Fracture of unspecified part of neck of left femur, initial encounter for closed fracture JOSE GARCIA MD Apr 10, 2017 09:27
[2017-04-10] MEDS ORDERED: SENNOSIDES/DOCUSATE 8.6/50MG TABLET. PO PRN (09:30)
[2017-04-10] MEDS ORDERED: traMADol 50 MG TABLET PO PRN (09:30)
[2017-04-10] MEDS ORDERED: oxyCODONE IR 5 MG TABLET PO PRN (09:30)
[2017-04-10] MEDS ORDERED: ERGOCALCIFEROL (VITAMIN D2) 50,000 UNIT CAPSULE. PO SCH (10:00)
--- NOTE | 2017-04-10 10:49 | PDOC ---
Provider Note Provider Note s/p hip fx orif, labs/vitals good, on warf inr 1.1- Daphne greenfield- cont LESTER Gonzalez MD Apr 10, 2017 10:49
[2017-04-10 11:00] VITALS: BP 115/62
[2017-04-10 11:32] LABS: BASO % 0 % (0-3); EOS % 0 % (0-3); HEMOGLOBIN 10.5 g/dL (13.0-17.5); LYMPH # 0.5 x10^3/uL (1.0-4.8); LYMPH % 4 % (24-48); MEAN CORPUSCULAR HEMOGLOBIN 30 pg (25-35); MEAN CORPUSCULAR HGB CONC 34 g/dL (31-37); MEAN CORPUSCULAR VOLUME 88 fL (79-100); MONO % 9 % (0-9); NEUT % 87 % (31-73); PLATELET COUNT 179 x10^3/uL (140-400); RED BLOOD COUNT 3.53 x10^6/uL (4.30-5.70); RED CELL DISTRIBUTION WIDTH 13.3 % (11.5-14.5); WHITE BLOOD COUNT 13.7 x10^3/uL (4.0-11.0)
[2017-04-10 11:44] LABS: CREATININE 1.1 mg/dL (0.7-1.3); GFR 64.1
[2017-04-10] MEDS: CHOLECALCIFEROL (VITAMIN D3) 1,000 UNIT TABLET PO SCH ×2 (12:02→20:38)
[2017-04-10] MEDS ORDERED: HEPARIN PF for SUB-Q USE 5,000 UNIT/0.5 ML VIAL. SQ SCH (14:00)
[2017-04-10 15:00] VITALS: BP 108/48
[2017-04-10] MEDS ORDERED: RIVAROXABAN 10 MG TABLET. PO SCH (17:00)
[2017-04-10] MEDS: RIVAROXABAN 10 MG TABLET. PO SCH (17:00)
[2017-04-10 19:00] VITALS: BP 129/58
[2017-04-10 23:40] VITALS: BP 127/61
[2017-04-11 03:00] VITALS: BP 122/57
[2017-04-11 07:00] VITALS: BP 118/57
[2017-04-11] MEDS: RIVAROXABAN 10 MG TABLET. PO SCH ×2 (08:48→09:00)
[2017-04-11] MEDS: CHOLECALCIFEROL (VITAMIN D3) 1,000 UNIT TABLET PO SCH ×2 (08:48→22:35)
[2017-04-11] MEDS: ACETAMINOPHEN 500 MG TABLET PO SCH ×5 (08:48→22:33)
[2017-04-11 10:48] VITALS: BP 103/50
--- NOTE | 2017-04-11 11:25 | PDOC ---
Provider Note Provider Note sleeping , vss- labs ok, no new probs- xarelto re LESTER Marshall MD Apr 11, 2017 11:25
[2017-04-11] MEDS ORDERED: ANTI-COAG MONITOR BY PHARMACY. MC PRN (13:15)
[2017-04-11 14:29] VITALS: BP 107/56
[2017-04-11 19:00] VITALS: BP 101/54
[2017-04-11 23:09] VITALS: BP 128/61
[2017-04-12 03:13] VITALS: BP 120/63
[2017-04-12] MEDS: ACETAMINOPHEN 500 MG TABLET PO SCH ×2 (06:24→11:59)
[2017-04-12 07:00] VITALS: BP 115/59
--- NOTE | 2017-04-12 07:39 | PDOC ---
PROGRESS NOTES Subjective Subjective Problems overnight: No acute issues. The patient has already done and tolerated stairs with pt. He would like to go home later today. Complaining of thigh pain. Objective Vital Signs Vital Signs Date Time Temp Pulse Resp B/P (MAP) Pulse Ox O2 Delivery O2 Flow Rate FiO2 04/12/17 03:13 97.5 53 18 120/63 (82) 98 Room Air 97.5 04/09/17 17:42 10 Physical Exam LLE: incision cdi with prineo in place. no erythema or drainage. nvi distally. Labs Laboratory Tests Test 04/10/17 10:40 White Blood Count 13.7 x10^3/uL (4.0-11.0) Red Blood Count 3.53 x10^6/uL (4.30-5.70) Hemoglobin 10.5 g/dL (13.0-17.5) Hematocrit 31.0 % (39.0-53.0) Mean Corpuscular Volume 88 fL (79-100) Mean Corpuscular Hemoglobin 30 pg (25-35) Mean Corpuscular Hemoglobin Concent 34 g/dL (31-37) Red Cell Distribution Width 13.3 % (11.5-14.5) Platelet Count 179 x10^3/uL (140-400) Neutrophils (%) (Auto) 87 % (31-73) Lymphocytes (%) (Auto) 4 % (24-48) Monocytes (%) (Auto) 9 % (0-9) Eosinophils (%) (Auto) 0 % (0-3) Basophils (%) (Auto) 0 % (0-3) Neutrophils # (Auto) 12.0 x10^3uL (1.8-7.7) Lymphocytes # (Auto) 0.5 x10^3/uL (1.0-4.8) Monocytes # (Auto) 1.2 x10^3/uL (0.0-1.1) Eosinophils # (Auto) 0.0 x10^3/uL (0.0-0.7) Basophils # (Auto) 0.0 x10^3/uL (0.0-0.2) Sodium Level 137 mmol/L (136-145) Potassium Level 5.0 mmol/L (3.5-5.1) Chloride Level 102 mmol/L (98-107) Carbon Dioxide Level 28 mmol/L (21-32) Anion Gap 7 (6-14) Blood Urea Nitrogen 21 mg/dL (8-26) Creatinine 1.1 mg/dL (0.7-1.3) Estimated GFR (Cockcroft-Gault) 64.1 Glucose Level 174 mg/dL (70-99) Calcium Level 8.0 mg/dL (8.5-10.1) Assessment Assessment POD# 3, S/P left hip hemiarthroplasty. Problems: (1) Hip fracture, left Plan Plan of Care The patient is POD 3 s/p left hip hemiarthroplasty He is currently doing very well. pain is well controlled. he would like to go home later today if possible. he is on coumadin for dvt ppx he will f/u in 7-10 days in my office. Problem Qualifiers (1) Hip fracture, left: Encounter type: initial encounter Fracture type: closed Qualified Codes: S72.002A - Fracture of unspecified part of neck of left femur, initial encounter for closed fracture JOSE GARCIA MD Apr 12, 2017 07:39
[2017-04-12] MEDS: RIVAROXABAN 10 MG TABLET. PO SCH (08:07)
[2017-04-12] MEDS: CHOLECALCIFEROL (VITAMIN D3) 1,000 UNIT TABLET PO SCH (08:07)
--- NOTE | 2017-04-12 08:20 | PDOC ---
GENERAL General: vss and afebrile. doing well. refuses snu. chest clear and heart regular. expected left leg pain. understands restrictions. has list of exercises from therapy to do at home. see discharge paperwork. Problems: VITAL SIGNS Vital Signs: Vital Signs Date Time Temp Pulse Resp B/P (MAP) Pulse Ox O2 Delivery O2 Flow Rate FiO2 04/12/17 07:00 97.6 51 20 115/59 (77) 94 Room Air 97.6 I & O I & O Intake and Output 04/12/17 07:00 Intake Total 950 ml Output Total 2075 ml Balance -1125 ml Intake Oral 950 ml Output Urine Total 2075 ml ALLERGIES Allergies: Allergies Coded Allergies Type Severity Reaction Last Updated Verified No Known Drug Allergies 12/11/15 No MEDS Medications: Current Medications Medications (Trade) Dose Ordered Sig/David Start Time Stop Time Status Last Admin Dose Admin Acetaminophen (Tylenol) 1,000 mg Q6HRS 04/08/17 18:00 04/12/17 06:24 1,000 MG Bupivacaine HCl/ Epinephrine Bitart (Sensorcaine-Epi 0.25%-1:[id number] Mpf) 30 ml STK-MED ONCE 04/09/17 17:27 04/09/17 17:28 DC 04/09/17 17:35 30 ML Cefazolin Sodium/ Dextrose 50 ml @ As Directed STK-MED ONCE 04/09/17 14:56 04/09/17 14:57 DC Dexamethasone Sodium Phosphate (Decadron) 20 mg STK-MED ONCE 04/09/17 14:15 04/09/17 14:16 DC Ephedrine Sulfate 50 mg STK-MED ONCE 04/09/17 16:43 04/09/17 16:44 DC Ergocalciferol (Vitamin D2) 50,000 unit WEEKLY 04/10/17 10:00 04/10/17 12:02 50,000 UNIT Fentanyl Citrate (Fentanyl 2ml Vial) 100 mcg STK-MED ONCE 04/09/17 15:59 04/09/17 16:00 DC Glycopyrrolate (Robinul) 1 mg STK-MED ONCE 04/09/17 14:14 04/09/17 14:15 DC Heparin Sodium (Porcine) (Heparin Sq) 5,000 unit Q8HRS 04/10/17 14:00 04/10/17 16:32 DC Hydromorphone HCl (Dilaudid) 0.5 mg PRN Q10MIN PRN 04/09/17 07:00 04/09/17 23:00 DC Info (Anti-Coagulation Monitoring By Pharmacy) 1 each PRN DAILY PRN 04/11/17 13:15 04/11/17 13:05 1 EACH Lidocaine HCl (Lidocaine Pf 2% Vial) 5 ml STK-MED ONCE 04/09/17 14:15 04/09/17 14:16 DC Morphine Sulfate 1 mg PRN Q10MIN PRN 04/09/17 07:00 04/09/17 23:00 DC Neostigmine Methylsulfate 5 mg STK-MED ONCE 04/09/17 14:15 04/09/17 14:16 DC Ondansetron HCl (Zofran) 4 mg STK-MED ONCE 04/09/17 14:15 04/09/17 14:16 DC Oxycodone HCl (Roxicodone) 5 mg PRN Q4HRS PRN 04/10/17 09:30 Prochlorperazine Edisylate (Compazine) 5 mg PACU PRN PRN 04/09/17 07:00 04/09/17 23:00 DC Propofol 20 ml @ As Directed STK-MED ONCE 04/09/17 14:16 04/09/17 14:17 DC Ringer's Solution 1,000 ml @ 30 mls/hr Q24H 04/09/17 07:00 04/09/17 18:59 DC 04/09/17 14:05 30 MLS/HR Rivaroxaban (Xarelto) 10 mg DAILY 04/10/17 17:00 04/12/17 08:07 10 MG Rocuronium [place] (Zemuron) 50 mg STK-MED ONCE 04/09/17 14:14 04/09/17 14:15 DC Senna/Docusate Sodium (Senna Plus) 2 tab PRN BID PRN 04/10/17 09:30 Sevoflurane (Ultane) 90 ml STK-MED ONCE 04/09/17 14:14 04/09/17 14:15 DC Tramadol HCl (Ultram) 50 mg PRN Q6HRS PRN 04/10/17 09:30 Tranexamic Acid 1000 mg/Sodium Chloride 60 ml @ 60 mls/hr 1X PERIOP ONCE 04/09/17 15:47 04/09/17 16:46 DC 04/09/17 17:02 60 MLS/HR Vitamin D (Vitamin D3) 1,000 unit BID 04/10/17 10:00 04/12/17 08:07 1,000 UNIT TOYIN LANDA MD Apr 12, 2017 08:20
[2017-04-12 11:00] VITALS: BP 101/51
[2017-04-12] MEDS ORDERED: CHOL100014 PO (14:48)
[2017-04-12] MEDS ORDERED: ACET500T68 PO (14:49)
[2017-04-12] MEDS ORDERED: RIVA10TA PO (14:49)
[2017-04-12] MEDS ORDERED: HYDR-971 PO (14:50)
[2017-04-12 15:00] VITALS: BP 110/57
--- NOTE | 2017-04-15 14:44 | PATHOLOGY ---
PATHOLOGY REPORT * * * * * * * * FINAL DIAGNOSIS: Femoral head, left bipolar hip: - Focal fragmentation of bony trabeculae with recent intertrabecular hemorrhage consistent with fracture. - Degenerative arthritis. COMMENT: There is no evidence of malignancy. (JPM:mgr; 04/15/2017) REPORT ELECTRONICALLY SIGNED BY: Harsha Carney M.D. DATE/TIME: 04/15/2017 14:43 * * * * * * * * GROSS PATHOLOGY: Received in formalin labeled "Marcell Bowman, left hip bone and tissue," is a femoral head measuring 5.6 x 5.6 x 4.4 cm in greatest dimensions. The articular surface is pale chadwick and granular. Sectioning reveals a yellow chadwick marrow space, with the distal most aspect hemorrhagic in appearance, consistent with a fracture site. Court Assistant tissue from the fracture site is submitted in cassette A1, following decalcification. (KAH; 04/14/2017) INITIAL CPT CODE(S): A; 50203, 87938 Professional services [place] [facility] [place] [address] Technical services performed by [facility] at [address] [place] [address] [address], [place] [address]. SPECIMEN(S) RECEIVED: A.Left hip bone and tissue CLINICAL HISTORY: None provided PATIENT: MARCELL BOWMAN /AGE: [id number] 1935 (Age: 82) PATIENT #: [id number] ALT CASE #: SPECIMEN COLLECTION DATE: 04/09/2017 SPECIMEN RECEIVED DATE: 04/12/2017 [facility] - [address] [place] [address] - PHONE: [phone] * * * END OF REPORT * * *
--- NOTE | 2017-05-15 22:05 | HP ---
ADMIT DATE: 04/09/2017 CHIEF COMPLAINT AND HISTORY OF PRESENT ILLNESS: This is an 82-year-old white male who was admitted through the Emergency Room after a fall at [employer] fracturing his left hip. PAST MEDICAL HISTORY: Remarkable for osteoarthritis, hyperlipidemia, benign prostatic hypertrophy. He is known to have a prior inguinal hernia. He is status post hernia repair back in 12/2015 because of an incarcerated left inguinal hernia and pneumatosis of the right colon. He at that time had a left inguinal hernia repair and a right colon resection. MEDICATIONS: Brought with the patient, listed on the computer and have been addressed. ALLERGIES: No known drug allergies. SOCIAL HISTORY: He is single, lives at home alone. He is a nonsmoker, nondrinker. Does not abuse drugs. FAMILY HISTORY: Noncontributory. REVIEW OF SYSTEMS: Primarily remarkable for pain in the left hip area. PHYSICAL EXAMINATION: GENERAL: He is a well-developed, well-nourished, slender white male in no acute distress. VITAL SIGNS: Stable. He is afebrile. HEAD, EYES, EARS, NOSE, AND THROAT: Unremarkable. NECK: Supple without thyromegaly. CHEST: Clear to auscultation and percussion. HEART: Regular rate and rhythm without S3, S4, or murmur. ABDOMEN: Soft, nontender, without hepatosplenomegaly or masses. EXTREMITIES: Without cyanosis, clubbing or edema. NEUROLOGIC: He is intact. There is no significant leg length discrepancy on his exam. IMPRESSION: 1. Fracture of the left hip as mentioned above. 2. Other problems listed above. PLAN: The patient has been admitted. Ortho has been consulted. The patient will be monitored, managed and treated appropriately. TOYIN LANDA MD DR: CLAIRE/philip JOB#: [id number] / [id number]
--- NOTE | 2017-05-15 22:23 | DS ---
DATE OF DISCHARGE: 04/12/2017 PRIMARY DIAGNOSIS: Left hip fracture. ADDITIONAL DIAGNOSES: Hyperlipidemia, benign prostatic hypertrophy, postoperative anemia. CHIEF COMPLAINT AND HISTORY OF PRESENT ILLNESS: This 82-year-old white male was admitted to the hospital after a fall at [employer] fracturing his left hip. SUMMARY OF STAY: The patient was admitted to the hospital, taken by ortho for open reduction and internal fixation, left hip, progressed well postoperatively, was refusing halfway, wanted to go home with a set of exercises, which were provided and the patient was felt safe for discharge ____ this was accomplished. DISPOSITION: The patient is discharged to home, regular diet. Activity as tolerated, followup in the office in 1 week. DISCHARGE MEDICATIONS: Listed on the medical record and have been addressed. TOYIN LANDA MD DR: CLAIRE/philip JOB#: [id number] / [id number]
== END 2017-04-12 17:28 | disposition home or self-care (01) | DRG 470 ==
LOC: ER 11:07 → 4 NORTH 12:15 → OBSVTOIN 04-09 09:38
PROVIDERS: ADMIT Family Medicine; ATTEND Family Medicine
PROC: 0SRS0JA Replacement of Left Hip Joint, Femoral Surface with Synthetic Substitute, Uncemented, Open Approach (ICD-10-PCS; principal; 2017-04-09 15:00)
DX: S72.002A Fracture of unspecified part of neck of left femur, initial encounter for closed fracture (principal); E78.5 Hyperlipidemia, unspecified; W01.0XXA Fall on same level from slipping, tripping and stumbling without subsequent striking against object, initial encounter; M19.90 Unspecified osteoarthritis, unspecified site; Y93.89 Activity, other specified; Y92.511 Restaurant or cafe as the place of occurrence of the external cause; Y99.8 Other external cause status
CPT/HCPCS: 36415; 71010; 72170; 73501; 73502; 73552; 80048; 82306; 85007; 85027; 85610; 85730; 88305; 88311; 93005; 96374; G0378; G0379; J0690; J1100; J1170; J2001; J2270; J2405; J2704; J2710; J3010; J3490; J7030; J7120; 97110; 97116; 97530; 97535; 99285-25